=== PATIENT | female | born 1980 | race Asian ===

== ENCOUNTER → 2016-06-09 | Outpatient (CLI) | payer OTHER ==
[~2016-06-09] MED LIST: ALBU8HFA IH; NORE-109 PO; TRIA10.8 NASAL
[2016-06-09 13:03] LABS: BASOPHILS # (AUTO) 0.04 K/uL (0.00-0.20); BASOPHILS % (AUTO) 0.5 % (0.0-2.0); EOSINOPHILS # (AUTO) 0.21 K/uL (0.00-0.70); EOSINOPHILS % (AUTO) 2.88 % (1.0-6.0); HEMATOCRIT 45.9 % (36-46); HEMOGLOBIN 15.5 g/dL (12.0-16.0); LYMPHOCYTES # (AUTO) 2.7 K/uL (1.0-4.8); LYMPHOCYTES % (AUTO) 36.3 % (22.0-44.0); MEAN CORPUSCULAR HEMOGLOBIN 30.2 pg (26.0-34.0); MEAN CORPUSCULAR HGB CONC 33.6 G/dL (31.0-37.0); MEAN CORPUSCULAR VOLUME 90 fL (80-100); MONOCYTES # (AUTO) 0.5 K/uL (0.1-1.0); MONOCYTES % (AUTO) 6.2 % (2.0-9.0); NEUTROPHILS % (AUTO) 54.2 % (40.0-70.0); PLATELET COUNT (AUTO) 357 K/uL (150-450); RED BLOOD CELL COUNT(AUTO) 5.11 MIL/uL (4.00-5.20); RED CELL DISTRIBUTION WIDTH 12.8 % (11.5-14.5); WHITE BLOOD COUNT (AUTO) 7.4 K/uL (4.5-11.0)
[2016-06-09 13:34] LABS: ALANINE AMINOTRANSFERASE 61 U/L (12-78); ALBUMIN 3.9 g/dL (3.4-5.0); ANION GAP 8 mmol/L (8-16); ASPARTATE AMINOTRANSFERASE 37 U/L (15-37); BILIRUBIN,TOTAL 0.4 mg/dL (0.1-1.0); CALCIUM, TOTAL 8.6 mg/dL (8.8-10.5); CARBON DIOXIDE 27 mmol/L (22-29); CHLORIDE 103 mmol/L (98-107); CHOL/HDL RATIO 3.8 (3.9-5.7); CREATININE 0.81 mg/dL (0.60-1.30); GLOMERULAR FILTR. RATE CALC > 60 mL/min (>60); POTASSIUM 4.6 mmol/L (3.5-5.1); SODIUM SERUM 138 mmol/L (136-145); TOTAL PROTEIN, SERUM 8.3 g/dL (6.4-8.2); UREA NITROGEN, BLOOD 11 mg/dL (7-18)
[2016-06-09 14:45] LABS: HEMOGLOBIN A1C 5.7 % (4.5-6.2)
== END | disposition home or self-care (01) ==
LOC: MSR 10:59
PROVIDERS: ATTEND Internal Medicine
DX: Z00.00 Encounter for general adult medical examination without abnormal findings (principal); R05 Cough; R63.5 Abnormal weight gain
CPT/HCPCS: 71020; 83036; 84443

== ENCOUNTER → 2017-03-16 | Outpatient (CLI) | payer OTHER | END | disposition home or self-care (01) | LOC: LABPV 09:27 | PROVIDERS: ATTEND Internal Medicine | DX: R21 Rash and other nonspecific skin eruption (principal) | CPT/HCPCS: 85651; 86038; 86140; 86200; 86225 ==

== ENCOUNTER 2017-11-27 10:19 | Emergency (ER) | payer OTHER ==
[~2017-11-27] VITALS: Ht 160 cm; Wt 81.8 kg
[2017-11-27 10:22] VITALS: BP 148/104
[2017-11-27] MEDS ORDERED: FLUT16H NASAL (10:31)
[2017-11-27] MEDS ORDERED: BUDE10.2 IH (10:31)
[2017-11-27] MEDS ORDERED: AMLO2.5T3 PO (10:31)
[2017-11-27] MEDS ORDERED: MONT10TA21 PO (10:31)
[2017-11-27] MEDS ORDERED: IBUPROFEN 800 MG TABLET PO ONE (11:00)
[2017-11-27] MEDS ORDERED: BACITRACIN 0.9 GM PACKET OINTMENT TP ONE (11:00)
[2017-11-27] MEDS ORDERED: AMOX TR/POT CLAV 875 MG/125 MG TABLET PO ONE (11:00)
[2017-11-27] MEDS ORDERED: POVIDONE-IODINE 10% 15 ML SOLUTION UD TP ONE (11:00)
== END 2017-11-27 11:15 | disposition home or self-care (01) ==
LOC: EMS 10:20
DX: S61.552A Open bite of left wrist, initial encounter (principal); L03.114 Cellulitis of left upper limb; J45.909 Unspecified asthma, uncomplicated; Z88.1 Allergy status to other antibiotic agents; Z88.5 Allergy status to narcotic agent; Z88.6 Allergy status to analgesic agent; W54.0XXA Bitten by dog, initial encounter; Y93.89 Activity, other specified; Y92.89 Other specified places as the place of occurrence of the external cause; Y99.8 Other external cause status
CPT/HCPCS: 99284

== ENCOUNTER → 2018-06-05 | Outpatient (CLI) | payer OTHER ==
[~2018-06-05] MED LIST changes: +AMLO2.5T4 PO; +BUDE10.2 IH; +FLUT16H NASAL; +MONT10TA21 PO; -NORE-109 PO; -TRIA10.8 NASAL
[2018-06-05 12:44] LABS: BASOPHILS % (AUTO) 0.6 % (0.0-2.0); EOSINOPHILS % (AUTO) 1.7 % (1.0-6.0); HEMATOCRIT 38.8 % (36-46); HEMOGLOBIN 13.5 g/dL (12.0-16.0); LYMPHOCYTES # (AUTO) 2.1 K/uL (1.0-4.8); LYMPHOCYTES % (AUTO) 25.2 % (22.0-44.0); MEAN CORPUSCULAR HEMOGLOBIN 31.3 pg (26.0-34.0); MEAN CORPUSCULAR HGB CONC 34.8 G/dL (31.0-37.0); MEAN CORPUSCULAR VOLUME 90 fL (80-100); MONOCYTES # (AUTO) 0.4 K/uL (0.1-1.0); NEUTROPHILS # (AUTO) 5.7 K/uL (1.8-7.7); NEUTROPHILS % (AUTO) 67.5 % (40.0-70.0); PLATELET COUNT (AUTO) 326 K/uL (150-450); RED BLOOD CELL COUNT(AUTO) 4.32 MIL/uL (4.00-5.20)
[2018-06-05 13:04] LABS: HEMOGLOBIN A1C 5.5 % (4.5-6.2)
[2018-06-05 13:05] LABS: ALANINE AMINOTRANSFERASE 26 U/L (12-78); ALBUMIN 3.4 g/dL (3.4-5.0); ALKALINE PHOSPHATASE 65 U/L (46-116); ANION GAP 12 mmol/L (8-16); ASPARTATE AMINOTRANSFERASE 19 U/L (15-37); BILIRUBIN,TOTAL 0.4 mg/dL (0.1-1.0); CALCIUM, TOTAL 8.7 mg/dL (8.8-10.5); CARBON DIOXIDE 23 mmol/L (22-29); CHLORIDE 101 mmol/L (98-107); CREATININE 0.57 mg/dL (0.60-1.30); GLOMERULAR FILTR. RATE CALC > 60 mL/min (>60); GLUCOSE,RANDOM 84 mg/dL (70-110); POTASSIUM 3.6 mmol/L (3.5-5.1); SODIUM SERUM 136 mmol/L (136-145); TOTAL PROTEIN, SERUM 7.8 g/dL (6.4-8.2); UREA NITROGEN, BLOOD 11 mg/dL (7-18); URIC ACID 4.9 mg/dL (2.6-7.2)
[2018-06-05 16:15] LABS: RAPID PLASMA REAGIN NONREACTIVE (NONREACTIVE); RUBELLA SCREEN (IGG) IMMUNE (IMMUNE)
== END | disposition home or self-care (01) ==
LOC: LABMN 11:55
PROVIDERS: ATTEND Nurse Practitioner Women's Health
DX: Z34.01 Encounter for supervision of normal first pregnancy, first trimester (principal); Z31.430 Encounter of female for testing for genetic disease carrier status for procreative management; Z3A.00 Weeks of gestation of pregnancy not specified
CPT/HCPCS: 83036; 84550; 86592; 86762; 86787; 86850; 86900; 86901; 87340

== ENCOUNTER → 2018-07-24 | Outpatient (CLI) | payer OTHER | END | disposition home or self-care (01) | LOC: LABMN 16:25 | PROVIDERS: ATTEND Nurse Practitioner Women's Health | DX: Z34.02 Encounter for supervision of normal first pregnancy, second trimester (principal); Z3A.17 17 weeks gestation of pregnancy | CPT/HCPCS: 84443 ==

== ENCOUNTER → 2018-09-03 | Outpatient (CLI) | payer OTHER ==
[2018-09-03 10:14] LABS: BASOPHILS % (AUTO) 0.5 % (0.0-2.0); EOSINOPHILS % (AUTO) 2.4 % (1.0-6.0); HEMATOCRIT 39.3 % (36-46); HEMOGLOBIN 13.2 g/dL (12.0-16.0); LYMPHOCYTES # (AUTO) 1.9 K/uL (1.0-4.8); LYMPHOCYTES % (AUTO) 25.2 % (22.0-44.0); MEAN CORPUSCULAR HEMOGLOBIN 31.5 pg (26.0-34.0); MEAN CORPUSCULAR HGB CONC 33.7 G/dL (31.0-37.0); MEAN CORPUSCULAR VOLUME 93 fL (80-100); MONOCYTES # (AUTO) 0.5 K/uL (0.1-1.0); MONOCYTES % (AUTO) 6.4 % (2.0-9.0); NEUTROPHILS # (AUTO) 4.9 K/uL (1.8-7.7); NEUTROPHILS % (AUTO) 65.5 % (40.0-70.0); PLATELET COUNT (AUTO) 289 K/uL (150-450); RED CELL DISTRIBUTION WIDTH 13.7 % (11.5-14.5)
== END | disposition home or self-care (01) ==
LOC: LABMN 09:50
PROVIDERS: ATTEND Obstetrics & Gynecology
DX: Z34.82 Encounter for supervision of other normal pregnancy, second trimester (principal); Z3A.25 25 weeks gestation of pregnancy
CPT/HCPCS: 82951; 82952

== ENCOUNTER 2018-10-15 11:10 | Observation (INO) | payer OTHER ==
[~2018-10-15] VITALS: Ht 160 cm; Wt 86.2 kg
[2018-10-15 11:47] VITALS: BP 131/81
[2018-10-15] MEDS ORDERED: PREN-217 PO (11:47)
== END 2018-10-15 12:20 | disposition home or self-care (01) ==
LOC: 4S 11:10
PROVIDERS: ADMIT Obstetrics & Gynecology; ATTEND Obstetrics & Gynecology
DX: O10.913 Unspecified pre-existing hypertension complicating pregnancy, third trimester (principal); O09.523 Supervision of elderly multigravida, third trimester; Z3A.32 32 weeks gestation of pregnancy
CPT/HCPCS: 81002; G0378

== ENCOUNTER 2018-10-15 14:41 | Observation (INO) | payer OTHER ==
[~2018-10-15] VITALS: Ht 160 cm; Wt 86.2 kg
[~2018-10-15 14:41] MED LIST changes: +PREN-217 PO
[2018-10-18 15:54] VITALS: BP 125/80
== END 2018-10-18 15:45 | disposition home or self-care (01) ==
LOC: 4S 10-18 14:10
PROVIDERS: ADMIT Obstetrics & Gynecology; ATTEND Obstetrics & Gynecology
DX: O26.893 Other specified pregnancy related conditions, third trimester (principal); R07.89 Other chest pain; R06.02 Shortness of breath; R03.0 Elevated blood-pressure reading, without diagnosis of hypertension; O99.513 Diseases of the respiratory system complicating pregnancy, third trimester; J45.909 Unspecified asthma, uncomplicated; O09.523 Supervision of elderly multigravida, third trimester; Z3A.32 32 weeks gestation of pregnancy
CPT/HCPCS: 81002; G0378

== ENCOUNTER 2018-10-22 15:02 | Observation (INO) | payer OTHER ==
[~2018-10-22] VITALS: Ht 160 cm; Wt 88.5 kg
[~2018-10-22 15:02] MED LIST changes: -ALBU8HFA IH; -AMLO2.5T4 PO; -BUDE10.2 IH; -FLUT16H NASAL; -MONT10TA21 PO
[2018-10-22 15:20] VITALS: BP 124/77
== END 2018-10-22 15:40 | disposition home or self-care (01) ==
LOC: 4S 15:02
PROVIDERS: ADMIT Obstetrics & Gynecology; ATTEND Obstetrics & Gynecology
DX: O26.893 Other specified pregnancy related conditions, third trimester (principal); G43.909 Migraine, unspecified, not intractable, without status migrainosus; G89.29 Other chronic pain; O09.523 Supervision of elderly multigravida, third trimester; Z3A.33 33 weeks gestation of pregnancy
CPT/HCPCS: 81002; G0378

== ENCOUNTER 2018-10-25 13:16 | Observation (INO) | payer OTHER ==
[~2018-10-25] VITALS: Ht 162.6 cm; Wt 87.1 kg
[2018-10-25 17:48] VITALS: BP 119/72
== END 2018-10-25 17:25 | disposition home or self-care (01) ==
LOC: 4S 15:20
PROVIDERS: ADMIT Obstetrics & Gynecology; ATTEND Obstetrics & Gynecology
DX: O10.913 Unspecified pre-existing hypertension complicating pregnancy, third trimester (principal); O09.523 Supervision of elderly multigravida, third trimester; O99.513 Diseases of the respiratory system complicating pregnancy, third trimester; J45.909 Unspecified asthma, uncomplicated; R06.02 Shortness of breath; Z3A.33 33 weeks gestation of pregnancy
CPT/HCPCS: 76811; 81002; G0378

== ENCOUNTER 2018-10-29 11:00 | Observation (INO) | payer OTHER ==
[~2018-10-29] VITALS: Ht 162.6 cm; Wt 88.0 kg
[2018-10-29 11:23] VITALS: BP 123/71
== END 2018-10-29 12:00 | disposition home or self-care (01) ==
LOC: 4S 11:00
PROVIDERS: ADMIT Obstetrics & Gynecology; ATTEND Obstetrics & Gynecology
DX: O10.913 Unspecified pre-existing hypertension complicating pregnancy, third trimester (principal); O09.523 Supervision of elderly multigravida, third trimester; Z3A.34 34 weeks gestation of pregnancy
CPT/HCPCS: 81002; G0378

== ENCOUNTER 2018-10-29 13:26 | Observation (INO) | payer OTHER ==
[2018-10-31 11:53] VITALS: BP 130/80
== END 2018-10-31 12:49 | disposition home or self-care (01) ==
LOC: 4S 10-31 11:57
PROVIDERS: ADMIT Obstetrics & Gynecology; ATTEND Obstetrics & Gynecology
DX: O10.913 Unspecified pre-existing hypertension complicating pregnancy, third trimester (principal); O99.513 Diseases of the respiratory system complicating pregnancy, third trimester; J45.909 Unspecified asthma, uncomplicated; O09.523 Supervision of elderly multigravida, third trimester; Z3A.34 34 weeks gestation of pregnancy
CPT/HCPCS: 76811; 81002; G0378

== ENCOUNTER 2018-11-05 11:05 | Observation (INO) | payer OTHER ==
[~2018-11-05] VITALS: Ht 160 cm; Wt 88.0 kg
[2018-11-05] MEDS ORDERED: PREN-217 PO (11:38)
[2018-11-05 11:43] VITALS: BP 134/75
== END 2018-11-05 13:00 | disposition home or self-care (01) ==
LOC: 4S 11:05
PROVIDERS: ADMIT Obstetrics & Gynecology; ATTEND Obstetrics & Gynecology
DX: O10.913 Unspecified pre-existing hypertension complicating pregnancy, third trimester (principal); O99.513 Diseases of the respiratory system complicating pregnancy, third trimester; J45.909 Unspecified asthma, uncomplicated; O09.523 Supervision of elderly multigravida, third trimester; Z3A.35 35 weeks gestation of pregnancy

== ENCOUNTER 2018-11-08 11:10 | Observation (INO) | payer OTHER ==
[~2018-11-08] VITALS: Ht 162.6 cm; Wt 79.4 kg
[2018-11-08 11:34] VITALS: BP 138/75
[2018-11-08] MEDS ORDERED: METHYLERGONOVINE MALEATE 0.2 MG/ML VIAL IM PRN (14:15)
== END 2018-11-08 12:30 | disposition home or self-care (01) ==
LOC: 4S 11:10
PROVIDERS: ADMIT Obstetrics & Gynecology; ATTEND Obstetrics & Gynecology
DX: O10.913 Unspecified pre-existing hypertension complicating pregnancy, third trimester (principal); O09.523 Supervision of elderly multigravida, third trimester; Z3A.35 35 weeks gestation of pregnancy
CPT/HCPCS: 81002; G0378

== ENCOUNTER 2018-11-12 11:30 | Observation (INO) | payer OTHER ==
[~2018-11-12] VITALS: Ht 162.6 cm; Wt 87.1 kg
[2018-11-12 12:21] VITALS: BP 126/70
== END 2018-11-12 14:30 | disposition home or self-care (01) ==
LOC: 4S 11:30
PROVIDERS: ADMIT Obstetrics & Gynecology; ATTEND Obstetrics & Gynecology
DX: O13.3 Gestational [pregnancy-induced] hypertension without significant proteinuria, third trimester (principal); O09.523 Supervision of elderly multigravida, third trimester; Z3A.36 36 weeks gestation of pregnancy
CPT/HCPCS: 76805; 81002; G0378

== ENCOUNTER 2018-11-15 11:35 | Observation (INO) | payer OTHER ==
[~2018-11-15] VITALS: Ht 162.6 cm; Wt 87.1 kg
[2018-11-15 11:52] VITALS: BP 126/82
== END 2018-11-15 12:30 | disposition home or self-care (01) ==
LOC: 4S 11:35
PROVIDERS: ADMIT Obstetrics & Gynecology; ATTEND Obstetrics & Gynecology
DX: O10.913 Unspecified pre-existing hypertension complicating pregnancy, third trimester (principal); O09.523 Supervision of elderly multigravida, third trimester; Z3A.36 36 weeks gestation of pregnancy

== ENCOUNTER 2018-11-19 11:17 | Observation (INO) | payer OTHER ==
[~2018-11-19] VITALS: Ht 160 cm; Wt 88.5 kg
[2018-11-19 12:47] VITALS: BP 130/73
== END 2018-11-19 12:25 | disposition home or self-care (01) ==
LOC: 4S 11:17
PROVIDERS: ADMIT Obstetrics & Gynecology; ATTEND Obstetrics & Gynecology
DX: O10.913 Unspecified pre-existing hypertension complicating pregnancy, third trimester (principal); O09.523 Supervision of elderly multigravida, third trimester; Z3A.37 37 weeks gestation of pregnancy

== ENCOUNTER 2018-11-22 10:15 | Observation (INO) | payer OTHER ==
[~2018-11-22] VITALS: Ht 162.6 cm; Wt 87.3 kg
[2018-11-22 10:32] VITALS: BP 125/81
== END 2018-11-22 12:05 | disposition home or self-care (01) ==
LOC: 4S 10:15
PROVIDERS: ADMIT Obstetrics & Gynecology; ATTEND Obstetrics & Gynecology
DX: O09.523 Supervision of elderly multigravida, third trimester (principal); O99.513 Diseases of the respiratory system complicating pregnancy, third trimester; J45.909 Unspecified asthma, uncomplicated; O10.913 Unspecified pre-existing hypertension complicating pregnancy, third trimester; Z3A.37 37 weeks gestation of pregnancy
CPT/HCPCS: 76816; 81002; G0378

== ENCOUNTER 2018-11-25 12:40 | Observation (INO) | payer OTHER ==
[2018-11-25 13:00] VITALS: BP 131/84
== END 2018-11-25 13:25 | disposition home or self-care (01) ==
LOC: 4S 12:40
PROVIDERS: ADMIT Obstetrics & Gynecology; ATTEND Obstetrics & Gynecology
DX: Z34.93 Encounter for supervision of normal pregnancy, unspecified, third trimester (principal); Z88.1 Allergy status to other antibiotic agents; Z3A.38 38 weeks gestation of pregnancy
CPT/HCPCS: 81002; G0378

== ENCOUNTER 2018-11-30 11:27 | Observation (INO) | payer OTHER ==
[~2018-11-30] VITALS: Ht 160 cm; Wt 87.5 kg
[2018-11-30 12:29] VITALS: BP 130/70
== END 2018-11-30 12:25 | disposition home or self-care (01) ==
LOC: 4S 11:27
PROVIDERS: ADMIT Obstetrics & Gynecology; ATTEND Obstetrics & Gynecology
DX: O10.913 Unspecified pre-existing hypertension complicating pregnancy, third trimester (principal); O09.513 Supervision of elderly primigravida, third trimester; Z3A.38 38 weeks gestation of pregnancy
CPT/HCPCS: 81002; G0378

== ENCOUNTER 2018-12-04 15:10 | Inpatient (IN) | payer OTHER ==
[~2018-12-04] VITALS: Ht 160 cm; Wt 87.1 kg
[2018-12-04 15:41] VITALS: BP 123/78
[2018-12-04 16:58] LABS: BASOPHILS % (AUTO) 0.6 % (0.0-2.0); EOSINOPHILS % (AUTO) 0.9 % (1.0-6.0); HEMATOCRIT 41.5 % (36-46); HEMOGLOBIN 14.2 g/dL (12.0-16.0); MEAN CORPUSCULAR HEMOGLOBIN 32.5 pg (26.0-34.0); MEAN CORPUSCULAR HGB CONC 34.2 G/dL (31.0-37.0); MEAN CORPUSCULAR VOLUME 95 fL (80-100); MONOCYTES # (AUTO) 0.5 K/uL (0.1-1.0); MONOCYTES % (AUTO) 6.9 % (2.0-9.0); NEUTROPHILS # (AUTO) 4.7 K/uL (1.8-7.7); NEUTROPHILS % (AUTO) 64.6 % (40.0-70.0); PLATELET COUNT (AUTO) 261 K/uL (150-450); RED BLOOD CELL COUNT(AUTO) 4.37 MIL/uL (4.00-5.20); RED CELL DISTRIBUTION WIDTH 13.8 % (11.5-14.5)
[2018-12-04 17:05] LABS: ANION GAP 12 mmol/L (8-16); CALCIUM, TOTAL 9.2 mg/dL (8.8-10.5); CARBON DIOXIDE 23 mmol/L (22-29); CHLORIDE 101 mmol/L (98-107); CREATININE 0.85 mg/dL (0.60-1.30); GLOMERULAR FILTR. RATE CALC > 60 mL/min (>60); GLUCOSE,RANDOM 99 mg/dL (70-110); POTASSIUM 3.9 mmol/L (3.5-5.1); SODIUM SERUM 136 mmol/L (136-145); UREA NITROGEN, BLOOD 13 mg/dL (7-18)
[2018-12-04 17:11] LABS: ALANINE AMINOTRANSFERASE 18 U/L (12-78); ALBUMIN 3.1 g/dL (3.4-5.0); ALKALINE PHOSPHATASE 115 U/L (46-116); ASPARTATE AMINOTRANSFERASE 20 U/L (15-37); BILIRUBIN,TOTAL 0.3 mg/dL (0.1-1.0); TOTAL PROTEIN, SERUM 7.4 g/dL (6.4-8.2); URIC ACID 4.6 mg/dL (2.6-7.2)
[2018-12-04] MEDS ORDERED: RINGERS SOLUTION,LACTATED 1,000 ML IV ONE (17:14)
[2018-12-04] MEDS ORDERED: METOCLOPRAMIDE HCL 5 MG/ML 2 ML VIAL IVP ONE (17:15)
[2018-12-04] MEDS ORDERED: CITRIC ACID/SODIUM CITRATE 30 ML SOLUTION UDCUP PO ONE (17:15)
[2018-12-05] MEDS ORDERED: CITRIC ACID/SODIUM CITRATE 30 ML SOLUTION UDCUP ONE (07:32)
[2018-12-05] MEDS ORDERED: METOCLOPRAMIDE HCL 5 MG/ML 2 ML VIAL ONE (08:21)
[2018-12-05] MEDS ORDERED: BUPIVACAINE HCL/DEX-WATER/PF 0.75% 2 ML AMP ONE (10:25)
[2018-12-05] MEDS ORDERED: FentaNYL CITRATE-PF 100 MCG/2 ML VIAL ONE (10:25)
[2018-12-05] MEDS ORDERED: MORPHINE SULFATE/PF 1 MG/ML 10 ML AMP ONE (10:25)
[2018-12-05] MEDS ORDERED: MIDAZOLAM HCL 2 MG/2 ML VIAL ONE (10:25)
[2018-12-05] MEDS ORDERED: BUPIVACAINE HCL/PF 0.25% 10 ML VIAL ONE ×3 (10:36→11:23)
[2018-12-05] MEDS ORDERED: BUPIVACAINE LIPOSOME/PF 1.3%-13.3MG/ML SUSPENSION 20 ML VIAL INJ ONE (11:30)
[2018-12-05] MEDS ORDERED: GUM MASTIC/STORAX/MSAL/ALCOHOL LIQUID 0.67 ML VIAL TP ONE (11:31)
[2018-12-05] MEDS ORDERED: ACETAMINOPHEN 1000 MG/ISO-OSM 100 ML IV ONE (11:59)
[2018-12-05] MEDS ORDERED: EPHEDrine SULFATE 50 MG/ML VIAL IM ONE (12:00)
[2018-12-05] MEDS ORDERED: METOCLOPRAMIDE HCL 5 MG/ML 2 ML VIAL IVP ONE (12:00)
[2018-12-05] MEDS ORDERED: DEXAMETHASONE SOD PHOS 4 MG/ML VIAL IVP ONE (12:00)
[2018-12-05] MEDS ORDERED: KETOROLAC TROMETHAMINE 60 MG/2 ML VIAL IM ONE (12:00)
[2018-12-05] MEDS ORDERED: OXYTOCIN 10 UNITS/ML VIAL IM ONE (12:00)
[2018-12-05] MEDS ORDERED: ONDANSETRON HCL 4 MG/2 ML VIAL IVP ONE (12:00)
[2018-12-05] MEDS: ACETAMINOPHEN 1000 MG/ISO-OSM 100 ML IV SCH ×2 (12:07→18:04)
[2018-12-05] MEDS: CYCLOBENZAPRINE HCL 10 MG TABLET PO SCH ×2 (13:25→22:18)
[2018-12-05] MEDS: RINGERS SOLUTION,LACTATED 1,000 ML IV SCH ×2 (14:09→23:47)
[2018-12-05] MEDS ORDERED: MEASLES/MUMPS/RUBELLA VACCINE, LIVE 0.5 ML/VIAL SQ ONE (14:15)
[2018-12-05] MEDS ORDERED: LANOLIN 7 GM OINTMENT TP PRN (14:15)
[2018-12-05] MEDS: KETOROLAC TROMETHAMINE 30 MG/ML VIAL IVP SCH ×2 (17:15→23:46)
[2018-12-05] MEDS ORDERED: OXYGEN THERAPY IH SCH (20:00)
[2018-12-05] MEDS: MAGNESIUM HYDROXIDE SUSPENSION 30 ML UDCUP PO PRN (22:19)
[2018-12-06] MEDS: ACETAMINOPHEN 1000 MG/ISO-OSM 100 ML IV SCH ×2 (00:47→06:51)
[2018-12-06] MEDS: KETOROLAC TROMETHAMINE 30 MG/ML VIAL IVP SCH ×3 (05:49→20:19)
[2018-12-06 06:46] LABS: BASOPHILS % (AUTO) 0.2 % (0.0-2.0); EOSINOPHILS % (AUTO) 0.2 % (1.0-6.0); HEMATOCRIT 30.2 % (36-46); HEMOGLOBIN 10.8 g/dL (12.0-16.0); LYMPHOCYTES # (AUTO) 2.5 K/uL (1.0-4.8); LYMPHOCYTES % (AUTO) 25.6 % (22.0-44.0); MEAN CORPUSCULAR HEMOGLOBIN 33.7 pg (26.0-34.0); MEAN CORPUSCULAR HGB CONC 35.7 G/dL (31.0-37.0); MEAN CORPUSCULAR VOLUME 95 fL (80-100); MONOCYTES # (AUTO) 0.6 K/uL (0.1-1.0); MONOCYTES % (AUTO) 6.5 % (2.0-9.0); NEUTROPHILS # (AUTO) 6.5 K/uL (1.8-7.7); NEUTROPHILS % (AUTO) 67.5 % (40.0-70.0); PLATELET COUNT (AUTO)-OB 224 K/uL (150-450); RED BLOOD CELL COUNT(AUTO) 3.19 MIL/uL (4.00-5.20); RED CELL DISTRIBUTION WIDTH 13.8 % (11.5-14.5)
[2018-12-06] MEDS ORDERED: FentaNYL CITRATE-PF 100 MCG/2 ML VIAL IVP PRN (08:50)
[2018-12-06] MEDS: FentaNYL CITRATE-PF 100 MCG/2 ML VIAL IVP PRN ×5 (09:06→19:07)
[2018-12-06] MEDS: RINGERS SOLUTION,LACTATED 1,000 ML IV SCH (13:20)
[2018-12-06] MEDS: MAGNESIUM HYDROXIDE SUSPENSION 30 ML UDCUP PO PRN (13:30)
[2018-12-06] MEDS ORDERED: ACETAMINOPHEN/CODEINE 300-30 MG TABLET PO PRN ×2 (14:15)
[2018-12-06] MEDS: CYCLOBENZAPRINE HCL 10 MG TABLET PO SCH (20:49)
[2018-12-07] MEDS: IBUPROFEN 800 MG TABLET PO PRN ×2 (00:58→08:26)
[2018-12-07] MEDS: ACETAMINOPHEN 500 MG TABLET PO PRN ×3 (03:50→18:09)
[2018-12-07] MEDS: CYCLOBENZAPRINE HCL 10 MG TABLET PO PRN ×2 (08:27→23:02)
[2018-12-07] MEDS: MAGNESIUM HYDROXIDE SUSPENSION 30 ML UDCUP PO PRN ×2 (08:30→23:02)
[2018-12-07] MEDS ORDERED: KETOROLAC TROMETHAMINE 30 MG/ML VIAL IM ONE (11:45)
[2018-12-07] MEDS ORDERED: OxyCODONE HCL/ACETAMINOPHEN 10-325 MG TABLET PO ONE (20:00)
[2018-12-08] MEDS: IBUPROFEN 800 MG TABLET PO PRN ×2 (09:10→14:09)
[2018-12-08] MEDS: OxyCODONE HCL/ACETAMINOPHEN 10-325 MG TABLET PO PRN ×2 (09:10→14:09)
[2018-12-08] MEDS ORDERED: PERCT PO (13:48)
[2018-12-08] MEDS ORDERED: IBUP-2124 PO (13:48)
[2018-12-08] MEDS ORDERED: DOCU100C33 PO (13:49)
[2018-12-08] MEDS ORDERED: FERR-89 PO (13:54)
== END 2018-12-08 16:55 | disposition home or self-care (01) | DRG 788 ==
LOC: OBSVTOIN 15:10 → 4S 15:10
PROVIDERS: ADMIT Obstetrics & Gynecology; ATTEND Obstetrics & Gynecology
PROC: 10D00Z1 Extraction of Products of Conception, Low, Open Approach (ICD-10-PCS; principal; 2018-12-05)
DX: O11.4 Pre-existing hypertension with pre-eclampsia, complicating childbirth (principal); O61.9 Failed induction of labor, unspecified; Z3A.39 39 weeks gestation of pregnancy; Z37.0 Single live birth; Z88.1 Allergy status to other antibiotic agents; Z91.011 Allergy to milk products; Z91.018 Allergy to other foods; Z88.8 Allergy status to other drugs, medicaments and biological substances
CPT/HCPCS: 84550; 86850; 86900; 86901; 87081; C9290; J0131; J0690; J1100; J1885; J2250; J2405; J2590; J2765; J3010; J3490; J7120

== ENCOUNTER → 2020-06-15 | Outpatient (CLI) | payer OTHER ==
[~2020-06-15] MED LIST changes: +DOCU100C33 PO; +FERR-89 PO; +IBUP-2124 PO; +PERCT PO
== END | disposition home or self-care (01) ==
LOC: RADPV 12:17
PROVIDERS: ATTEND Internal Medicine
DX: R76.11 Nonspecific reaction to tuberculin skin test without active tuberculosis (principal)
CPT/HCPCS: 71045-TC